=== PATIENT | female | born 1990 | race Caucasian/White ===

== ENCOUNTER 2017-01-27 02:47 | Inpatient (IN) | payer MEDICAID ==
[~2017-01-27] VITALS: Ht 167.6 cm; Wt 64.9 kg
[2017-01-27 03:08] LABS: microscopic required? NO
[2017-01-27 03:15] LABS: UA SPECIFIC GRAVITY <=1.005 (1.005-1.035); urine erythrocyte NEGATIVE (NEGATIVE)
[2017-01-27 03:23] LABS: BASOPHIL % 0.5 % (0-2); PLATELET COUNT 202 x10^3mcL (130-400); RED CELL DISTRIBUTION WIDTH 14.3 % (11.5-14.5)
[2017-01-27 03:28] LABS: AMPHETAMINE QUAL UR POSITIVE (NEG <=1000)
[2017-01-27 03:37] LABS: CALCIUM 9.2 mg/dL (8.5-10.1); CHLORIDE SERUM 100 mmol/L (98-107); CREATININE SERUM 0.8 mg/dL (0.6-1.0); GFR1 > 60 mL/min; GLUCOSE SERUM 85 mg/dL (74-106); POTASSIUM SERUM 3.9 mmol/L (3.5-5.1); SODIUM SERUM 140 mmol/L (136-145)
[2017-01-27 03:41] LABS: ALBUMIN 4.2 g/dL (3.4-5.0); ALKALINE PHOSPHATASE 55 U/L (46-116); ALT/SGPT 28 U/L (14-59); AST/SGOT 29 U/L (15-37); BILIRUBIN TOTAL 0.27 mg/dL (0.20-1.00); TOTAL PROTEIN, SERUM 7.7 g/dL (6.4-8.2)
[2017-01-27 05:50] VITALS: BP 152/95
[2017-01-27 09:12] VITALS: BP 146/96
== END 2017-01-27 10:40 | disposition left against medical advice (07) | DRG 816 ==
LOC: ED 02:47 → DU 04:31 → EDBD 04:31 → DU 05:17
PROVIDERS: Emergency Medicine; ADMIT Internal Medicine Pulmonary Disease
DX: T40.1X1A Poisoning by heroin, accidental (unintentional), initial encounter (principal); G92 Toxic encephalopathy; F11.129 Opioid abuse with intoxication, unspecified; F15.10 Other stimulant abuse, uncomplicated; F10.129 Alcohol abuse with intoxication, unspecified; Z72.0 Tobacco use; Y90.6 Blood alcohol level of 120-199 mg/100 ml; Y92.009 Unspecified place in unspecified non-institutional (private) residence as the place of occurrence of the external cause
CPT/HCPCS: G0480; J2310; J7030; Q0092